=== PATIENT | female | born 1945 | race Caucasian/White ===

== ENCOUNTER → 2024-07-13 | Outpatient (CLI) | payer MEDICARE | END | disposition home or self-care (01) | LOC: RESCLI 12:35 | PROVIDERS: ATTEND Internal Medicine | DX: N32.81 Overactive bladder (principal); I25.10 Atherosclerotic heart disease of native coronary artery without angina pectoris; G20.B1 Parkinson's disease with dyskinesia, without mention of fluctuations; K21.9 Gastro-esophageal reflux disease without esophagitis; E03.9 Hypothyroidism, unspecified; I10 Essential (primary) hypertension; K59.00 Constipation, unspecified; Z79.82 Long term (current) use of aspirin; Z79.899 Other long term (current) drug therapy; Z98.890 Other specified postprocedural states; Z88.2 Allergy status to sulfonamides; Z88.8 Allergy status to other drugs, medicaments and biological substances ==